=== PATIENT | female | born 1945 | race Caucasian/White ===

== ENCOUNTER → 2016-12-24 | Outpatient (CLI) | payer MEDICARE, BC | LOC: BHSO 15:14 | DX: F03.91 Unspecified dementia, unspecified severity, with behavioral disturbance (principal) ==

== ENCOUNTER → 2017-02-11 | Outpatient (CLI) | payer MEDICARE, BC | LOC: BHSO 15:08 | DX: F31.74 Bipolar disorder, in full remission, most recent episode manic (principal) ==

== ENCOUNTER → 2017-04-23 | Outpatient (CLI) | payer MEDICARE, BC | LOC: BHSO 15:00 | DX: F41.1 Generalized anxiety disorder (principal) ==

== ENCOUNTER → 2017-06-24 | Outpatient (CLI) | payer MEDICARE, BC | LOC: BHSO 14:30 | DX: F41.1 Generalized anxiety disorder (principal) ==

== ENCOUNTER → 2017-10-21 | Outpatient (CLI) | payer MEDICARE, BC | LOC: BHSO 13:16 | DX: F31.73 Bipolar disorder, in partial remission, most recent episode manic (principal) ==